=== PATIENT | male | born 1990 | race Caucasian/White ===

== ENCOUNTER 2021-03-27 10:12 | Emergency (ER) | payer SELFPAY ==
[~2021-03-27] VITALS: Ht 180.3 cm; Wt 64.0 kg
[2021-03-27 11:00] LABS: HEMATOCRIT. 42.7 % (42.0-52.0); MEAN CORPUSCULAR HEMOGLOBIN 32.8 pg (28.0-32.0); MEAN CORPUSCULAR VOLUME 93.5 fL (80.0-94.0); MEAN PLATELET VOLUME 7.5 fl (7.4-10.4); PLATELET 287 x1000/uL (130-400); RED BLOOD CELL COUNT 4.56 mill/uL (4.7-6.1)
[2021-03-27 11:03] LABS: CHLORIDE 104 mEq/L (98-107)
[2021-03-27] MEDS ORDERED: KETOROLAC 60MG/2ML VIAL IM ONE (11:45)
[2021-03-27 11:52] LABS: PLATELET ESTIMATE NORMAL
[2021-03-27] MEDS ORDERED: TAMSULOSIN HCL 0.4MG SR CAPSULE PO ONE (13:30)
[2021-03-27] MEDS ORDERED: ONDA4TAB5 MT (14:22)
[2021-03-27] MEDS ORDERED: IBUP-2029 MT (14:22)
[2021-03-27] MEDS ORDERED: CEPH500C2 MT (14:22)
[2021-03-27] MEDS ORDERED: TAMS-11 PO (14:22)
[2021-03-27 14:34] LABS: CLARITY URINE TURBID (CLEAR); COLOR URINE DK YELLOW (YELLOW); KETONES URINE 4+ (NEGATIVE); LEUKOCYTE ESTERASE URINE NEGATIVE (NEGATIVE); NITRITE URINE NEGATIVE (NEGATIVE); OCCULT BLOOD URINE 3+ (NEGATIVE); PH URINE 5.5 (4.5-8.0); PROTEIN URINE 2+ (NEGATIVE); SPECIFIC GRAVITY URINE 1.033 (1.005-1.030)
[2021-03-27 15:07] LABS: *AMPHETAMINES SCREEN URINE NEGATIVE (NEGATIVE); *BARBITURATES SCREEN URINE NEGATIVE (NEGATIVE); *BENZODIAZEPINES SCREEN URINE NEGATIVE (NEGATIVE); *COCAINE SCREEN URINE NEGATIVE (NEGATIVE); METHADONE URINE SCREEN NEGATIVE (NEGATIVE); OPIATES URINE SCREEN NEGATIVE (NEGATIVE)
[2021-03-27 15:08] LABS: CANNABINOID URINE SCREEN PRESUMTIVE POSITIVE (NEGATIVE); PHENCYCLIDINE URINE SCREEN NEGATIVE (NEGATIVE)
[2021-03-27 15:25] VITALS: BP 124/81
== END 2021-03-27 15:28 | disposition home or self-care (01) ==
LOC: ER 10:12
DX: N13.30 Unspecified hydronephrosis (principal); Z87.81 Personal history of (healed) traumatic fracture; Z98.890 Other specified postprocedural states
CPT/HCPCS: 36415; 76770; 80053; 80305; 81003; 83690; 85025; 96372; 99284; J1885; Z7610